=== PATIENT | male | born 1935 | race Caucasian/White ===

== ENCOUNTER 2020-08-07 19:23 | Inpatient (IN) | payer MEDICARE, OTHER ==
[~2020-08-07] VITALS: Ht 182.9 cm; Wt 98.4 kg
[2020-08-07] MEDS ORDERED: TAMS-3 PO (20:01)
[2020-08-07] MEDS ORDERED: LEVE1000 PO (20:01)
--- NOTE | 2020-08-07 20:17 | NUR ---
[facility]
--- NOTE | 2020-08-07 20:36 | NUR ---
Provided patient with meal.
--- NOTE | 2020-08-07 20:45 | NUR ---
Leatha Rosales NP spoke with ADRIANA Madrigal and stated that patient does not meet criteria to be admitted on medical floor. Patient can go to MHU and will be treated there.
--- NOTE | 2020-08-07 20:51 | NUR ---
Report given to MENG Mcmillan for psychiatric admission. Patient will be going to [facility].
[2020-08-07] MEDS ORDERED: BLOOD SUGAR DIAGNOSTIC 1 EACH STRIP VI ONE (21:15)
--- NOTE | 2020-08-07 22:01 | NUR ---
Patient transported to MHU in stable condition.
[2020-08-07] MEDS ORDERED: ZOLPIDEM 5 MG TABLET PO PRN (22:15)
[2020-08-07] MEDS ORDERED: LORAZEPAM 1 MG TABLET PO PRN (22:30)
[2020-08-07] MEDS ORDERED: MAGNESIUM HYDROXIDE 30 ML LIQUID UDC PO PRN (23:00)
[2020-08-07] MEDS ORDERED: MAG HYDROX/AL HYDROX/SIMETH 30 ML LIQUID UDC PO PRN (23:00)
[2020-08-07] MEDS ORDERED: ACETAMINOPHEN 325 MG TABLET PO PRN (23:00)
--- NOTE | 2020-08-07 23:15 | NUR ---
GPS: Admitted to unit earlier an 85 yr.old male under the care and supervision of / SHIRLEY Rosales. Pt.is on a 72 hour hold for GD. Pt.is alert to self,knows he's in the hosp. Reality re-orientation provided. Pt.calm when he came into the unit but started getting hostile,agitated,combative and threatening staff when his belongings were being checked despite staff's explanation . Uncooperative,refused to sign papers/refused further interview. Refused thorough skin /body assessemnt done on him despite explanation of importance. Pt's rights handbook/advisement given. Unit rules explained.Refused to be oriented to surroundings. Fall precautions observed. VSS.Denies pain/SOB. /SHIRLEY Rosales aware of pt's arrival to the unit. Requested sleeping pill for insomnia. Will monitor.
[2020-08-08 00:53] VITALS: BP 120/49
--- NOTE | 2020-08-08 07:01 | NUR ---
GPS: Pt.refused scheduled blood work this am. Risks vs benefits explained x3 but still unsuccessful.
--- NOTE | 2020-08-08 09:36 | NUR ---
Firearms Report: Resist Coater Developer completed and submitted a [employer] firearms report for 5150 grave disability certification. A copy of report has been placed in patient chart.
--- NOTE | 2020-08-08 11:12 | NUR ---
SW Family Contact: This SW contacted patient's person to notify Shaunna Aguilar ([phone]) to gather collateral and to discuss treatment/discharge plan. However, Shaunna was unavailable and this SW was unable to leave a voicemail.
--- NOTE | 2020-08-08 11:12 | NUR ---
Initial Discharge Plan: Patient is currently homeless and did not want to share any information. Patient will require a placement. This SW contacted patient's person to notify Shaunna Aguilar ([phone]) to gather collateral and to discuss treatment/discharge plan. However, Shaunna was unavailable and this SW was unable to leave a voicemail. This SW will work with the patient, treatment team, and MD to help coordinate proper discharge plan.
--- NOTE | 2020-08-08 11:14 | NUR ---
Individual Therapy: acid conditioning worker met with patient for brief counseling and assessed for patient's presenting problem disorganized thought content. Patient appeared guarded. Patient presented as confused, disorganized, and disoriented. Patient was uncooperative with this SW and was yelling while this SW attempted to conduct therapy. Patient was stating "I don't know how I got here, I need to leave". This SW comforted patient and stated why he was brought to the hospital. Patient calmed down afterwards. SW actively listened and provided comfort.
[2020-08-08] MEDS: levETIRAcetam 500 MG TABLET PO SCH ×2 (15:18→20:10)
--- NOTE | 2020-08-08 15:39 | NUR ---
Gps/children's choir director- Had been compliant with his routine medications, , attends and participates in his group therapy. had been cooperative with staff.
[2020-08-08 16:53] VITALS: BP 108/67
[2020-08-08] MEDS: QUETIAPINE FUMARATE 25 MG TABLET PO SCH (20:11)
--- NOTE | 2020-08-09 06:45 | NUR ---
PT SLEPT 8 H. PT IN NO ACUTE DISTRESS. PRESCRIBED MEDICATION GIVEN AND PT TOLERATED IT WELL. PT EASILY AGIATED. SAFETY AND COMFORT PROVIDED. ALL NEEDS ARE MET. WILL ENSORSE TO INCOMING NURSE FOR CONTINUITY OF CARE.
[2020-08-09] MEDS: TAMSULOSIN HCL 0.4 MG CAP.SR.24H PO SCH (08:35)
[2020-08-09] MEDS: levETIRAcetam 500 MG TABLET PO SCH ×2 (08:35→20:20)
--- NOTE | 2020-08-09 12:32 | NUR ---
WOUND CARE CONSULT: PT SEEN FOR BILATERAL HEELS WITH DRY WOUNDS, PRESENT ON ADMISSION. SOME TOENAILS NOTED TO BE LONG AND SHARP. RECOMMEND DPM CONSULT. DR ALEGRE NOTIFIED OF CONSULT REQUEST. IN AGREEMENT WITH PLAN OF CARE. Addendum: 08/09/20 at 1233 by ANA MALDONADO RN Amended: Links added.
--- NOTE | 2020-08-09 12:52 | NUR ---
SW Contact: This SW contacted patient's person to notify Shaunna Aguilar ([phone]) who stated that she has no relation with the patient and would want to be removed from patient's records. She expressed that she has been receiving constant phone calls from [facility] and has no relation with the pt. This SW will contact medical records.
--- NOTE | 2020-08-09 14:15 | NUR ---
Admitting: This SW contacted Marci from admitting to remove Shaunna joseph ([phone]) from patient's person to notify.
--- NOTE | 2020-08-09 14:39 | NUR ---
Individual Therapy: putty worker met with patient for brief counseling and assessed for patient's presenting problem disorganized thought content. Patient appeared guarded and angry. Patient did not want to speak to this SW. He stated "get out of here you bitch". Patient was verbally abusive and inappropriate. This SW unable to conduct therapy at this time.
--- NOTE | 2020-08-09 18:00 | NUR ---
Gps/angle shear operator- kept coming to the Nurses station, demanding to check all his belongings in a blue bag, informed they are in safe place, and will be given back to him when he's dc'd. patient irritable, arguementative, calling staff named stated" i was in the [employer] " . unable to redressed his soles of feet , pt. unacooperative, agry mood, offered prn ativan , refused,stated" you just want to dope me up" Patient very NIKOLSKI
--- NOTE | 2020-08-09 18:01 | NUR ---
patient been intrusive, paranoid , argumentative,patient cursing, using profanity to the telegraphic typewriter operator chief, patient increasingly agitated
[2020-08-09] MEDS: QUETIAPINE FUMARATE 25 MG TABLET PO SCH (20:20)
--- NOTE | 2020-08-09 22:09 | NUR ---
Received pt watching tv in the activity room. No acute distress noted. Denies discomfort. Denies SI. Due meds given as ordered. Safety measures maintained. Will continue to monitor.
[2020-08-10] MEDS: TAMSULOSIN HCL 0.4 MG CAP.SR.24H PO SCH (08:45)
[2020-08-10] MEDS: levETIRAcetam 500 MG TABLET PO SCH ×2 (08:46→20:43)
[2020-08-10] MEDS: ENSURE ENLIVE (VAN) 240 ML LIQUID PO SCH (16:55)
[2020-08-10] MEDS: QUETIAPINE FUMARATE 25 MG TABLET PO SCH (20:43)
--- NOTE | 2020-08-11 04:16 | NUR ---
Patient refused to take his psychiatric medication this PM and threw it on the floor stating " I do not need this damn medication and I should not even be here in the first place !". This patient continued to speak in a angry and elevated tone. After a few minutes, patient was calm and grateful to show card writer. Patient is labile and non compliant at this time. Continue to educate and encourage compliance. Monitoring the patient for safety and behavior escalation as well as periods of confusion. Will reorient patient as needed.
--- NOTE | 2020-08-11 06:31 | NUR ---
Patient slept 8.30 hours last night. No behavioral issues noted. Continuing to monitor for safety. Patient remains labile.
[2020-08-11] MEDS: levETIRAcetam 500 MG TABLET PO SCH ×2 (08:43→20:42)
[2020-08-11] MEDS: TAMSULOSIN HCL 0.4 MG CAP.SR.24H PO SCH (08:43)
[2020-08-11] MEDS: PROTEIN SUPPLEMENT (PROSTAT) 30 ML LIQUID PO SCH (08:44)
[2020-08-11] MEDS: ENSURE ENLIVE (VAN) 240 ML LIQUID PO SCH ×2 (08:44→17:21)
[2020-08-11] MEDS: QUETIAPINE FUMARATE 25 MG TABLET PO SCH (20:48)
--- NOTE | 2020-08-12 04:19 | NUR ---
Patient refused the PM dose of psychiatric medications , as well as routine VS and has not showered since admission. Patients mood is labile. Continuing to monitor for safety and any behavior escalation. No distress at this time.
[2020-08-12] MEDS: ENSURE ENLIVE (VAN) 240 ML LIQUID PO SCH ×2 (08:57→16:56)
[2020-08-12] MEDS: levETIRAcetam 500 MG TABLET PO SCH ×2 (08:57→20:52)
[2020-08-12] MEDS: TAMSULOSIN HCL 0.4 MG CAP.SR.24H PO SCH (08:57)
[2020-08-12] MEDS: PROTEIN SUPPLEMENT (PROSTAT) 30 ML LIQUID PO SCH (08:58)
--- NOTE | 2020-08-12 12:12 | NUR ---
[facility]: This SW contacted [facility] ([phone]) per patient's request. He stated that he lives here, however, this just social ict security specialist phone number.
--- NOTE | 2020-08-12 12:16 | NUR ---
Court Hearing: Patient's court hearing is today and it was upheld for GD.
--- NOTE | 2020-08-12 12:17 | NUR ---
SNF Referral: This SW sent CJ admin from [facility] ([phone]) for placement. This SW faxed patient's H & P progress notes, medication list, and laboratory list.
--- NOTE | 2020-08-12 12:50 | NUR ---
SNF Referral: This SW received a contact from CJ admin from [facility] ([phone]) who stated that pt is accepted.
--- NOTE | 2020-08-12 14:50 | NUR ---
Individual Therapy: project crew worker met with patient for brief counseling and assessed for patient's presenting problem disorganized thought content. Patient appeared guarded. Patient appeared angry and is fixated on discharge. Patient appeared disorganized and disoriented, he is unable to give out any information relating to his living condition or family information. Patient is fixated on his social security check. This SW was unable to provided therapy at this time as patient was unable to concentrate.
[2020-08-12] MEDS: QUETIAPINE FUMARATE 25 MG TABLET PO SCH (20:55)
--- NOTE | 2020-08-13 03:00 | NUR ---
RECEIVED PATIENT IN BED. NOTED QUIET, ISOLATIVE AND WITHDRAWN. DISPLAYED ONE EPISODE OF ANGER WHEN HE ASKED THAT I BRING HIM A STRONGER PAIN MEDICATION OTHER THAN TYLENOL. HE ALSO REFUSED HIS PSYCHIATRIC MEDICATION. HE HOWEVER TOOK THE KEPPRA.SAFETY MEASURES IN PLACE. WILL CONTINUE TO MONITOR.
[2020-08-13] MEDS: levETIRAcetam 500 MG TABLET PO SCH ×2 (08:25→20:36)
[2020-08-13] MEDS: PROTEIN SUPPLEMENT (PROSTAT) 30 ML LIQUID PO SCH (08:25)
[2020-08-13] MEDS: ENSURE ENLIVE (VAN) 240 ML LIQUID PO SCH ×2 (08:25→16:25)
[2020-08-13] MEDS: risperiDONE 0.25 MG TABLET PO SCH ×2 (11:00→16:26)
--- NOTE | 2020-08-13 12:42 | NUR ---
LUCIANO Note: Per patient's request he wanted this LUCIANO contacted [facility] ([phone]) and spoke with admin Jazmyn who stated that patient left [facility] August 06 and cannot return. Jazmyn reported that patient was verbally and physically abusive towards staff. Jazmyn reported that patient does not have any family members.
--- NOTE | 2020-08-13 14:32 | NUR ---
SW Note: This SW discussed discharge plan with patient and stated that patient is accepted at [facility]. This SW expressed that [facility] cannot accept him because he choose to leave. Patient agrees to going to [facility].
[2020-08-13 15:30] VITALS: BP 111/48
--- NOTE | 2020-08-13 15:40 | NUR ---
GPS: Nursing Notes: Non-compliance of Medication: Patient is awake and responding to his name, forgetful at times, gets easily irritable when redirected, loud and pressured speech, resistant with nursing care, continue to refuse to shower, refusing his psych medication, stated "HELL NO.. I AM NOT CRAZY..", demanding to leave at times, "THAT ASSHOLE MAKE A MISTAKE.. I AM NOT SUPPOSE TO BE HERE.. HE LIE ABOUT ME..", "I NEED TO FIND MY CAR..I WANT TO LEAVE..", unable to formulate a viable plan for self care, continue with treatment plan.
[2020-08-13] MEDS: TAMSULOSIN HCL 0.4 MG CAP.SR.24H PO SCH (20:36)
[2020-08-14] MEDS: PROTEIN SUPPLEMENT (PROSTAT) 30 ML LIQUID PO SCH (09:00)
[2020-08-14] MEDS: levETIRAcetam 500 MG TABLET PO SCH ×2 (10:25→20:06)
[2020-08-14] MEDS: risperiDONE 0.25 MG TABLET PO SCH ×2 (10:25→18:06)
[2020-08-14] MEDS: ENSURE ENLIVE (VAN) 240 ML LIQUID PO SCH ×2 (10:37→18:13)
--- NOTE | 2020-08-14 14:32 | NUR ---
Individual Therapy: salvage mend worker met with patient for brief counseling and assessed for patient's presenting problem disorganized thought content. Patient was asleep and did not want to conduct therapy at this time.
[2020-08-14] MEDS: TAMSULOSIN HCL 0.4 MG CAP.SR.24H PO SCH (20:06)
[2020-08-14 20:20] VITALS: BP 116/50
--- NOTE | 2020-08-15 06:45 | NUR ---
GPS: Pt.slept for 8.30 last night. Denies pain at this time. Seizure precautions observed. Needs attended. Will continue to re-direct prn.
[2020-08-15] MEDS: levETIRAcetam 500 MG TABLET PO SCH ×2 (08:59→20:15)
[2020-08-15] MEDS: risperiDONE 0.25 MG TABLET PO SCH ×2 (09:00→17:06)
[2020-08-15] MEDS: ENSURE ENLIVE (VAN) 240 ML LIQUID PO SCH ×2 (09:03→17:06)
[2020-08-15] MEDS: PROTEIN SUPPLEMENT (PROSTAT) 30 ML LIQUID PO SCH (09:03)
--- NOTE | 2020-08-15 15:01 | NUR ---
Individual Therapy: second time worker met with patient for brief counseling and assessed for patient's presenting problem disorganized thought content. Patient presented with euthymic mood. Patient appeared to be calm and cooperative with this SW. Patient appeared organized and had goals for himself. He stated "I will be taking care of myself at [facility]". This SW actively listened and provided support. This SW helped patient identify his goals.
[2020-08-15 16:00] VITALS: BP 116/46
--- NOTE | 2020-08-15 17:43 | NUR ---
Gps/Tent Worker- Stayed in the dinning room during his dinner, interacting with his peers. Denies any discomfort, continue to verbalized needs, and feelings, interactive .
[2020-08-15] MEDS: TAMSULOSIN HCL 0.4 MG CAP.SR.24H PO SCH (20:15)
[2020-08-16] MEDS: risperiDONE 0.25 MG TABLET PO SCH ×2 (08:31→16:58)
[2020-08-16] MEDS: PROTEIN SUPPLEMENT (PROSTAT) 30 ML LIQUID PO SCH (08:31)
[2020-08-16] MEDS: levETIRAcetam 500 MG TABLET PO SCH ×2 (08:31→20:06)
[2020-08-16] MEDS: ENSURE ENLIVE (VAN) 240 ML LIQUID PO SCH ×2 (08:34→16:58)
--- NOTE | 2020-08-16 09:14 | NUR ---
Discharge Note (Early Entry for Wednesday08/17/2020): Patient will be discharged to nursing home facility to [facility] ([address] [place] [address]; ) via ambulance transportation at 1PM. Lobbyist spoke with BERNICE, Infantry Weapons Crewmember at [facility]; ([phone]), who stated patient will be accepted at facility today. Patient does not have any family members. Patient is alert and oriented x2, and is not able to plan for self-care at this time, but is willing to accept care provided for her at the facility. Patient denies any suicidal or homicidal ideation. Patient denies visual/auditory hallucinations. Patient is aware and agreeable with discharge plans. Patient will continue to follow-up with her (Psychiatrist) Dr. Peterson and (Shutdown Planner) Dr. Pritchett at [facility] [address] [place] [address]; ). Patient signed the homeless waiver upon discharge and a copy was placed in the chart. Homeless resources were provided and include [address] information line for shelters and homeless resources. A copy of all resources given to patient was also placed in the chart. Patient presented with euthymic mood and congruent affect. Addendum: 08/16/20 at 1208 by LUCIANO NOVOA Discharge Note (Early Entry for Wednesday08/17/2020): Patient will be discharged to nursing home facility to [facility] ([address] [place] [address]; ) via ambulance transportation at 1PM. Lobbyist spoke with BERNICE, Infantry Weapons Crewmember at [facility]; ([phone]), who stated patient will be accepted at facility today. Patient does not have any family members. Patient is alert and oriented x2, and is not able to plan for self-care at this time, but is willing to accept care provided for his at the facility. Patient denies any suicidal or homicidal ideation. Patient denies visual/auditory hallucinations. Patient is aware and agreeable with discharge plans. Patient will continue to follow-up with his (Psychiatrist) Dr. Peterson and (Shutdown Planner) Dr. Pritchett at [facility] [address] [place] [address]; ). Patient signed the homeless waiver upon discharge and a copy was placed in the chart. Homeless resources were provided and include [address] information line for shelters and homeless resources. A copy of all resources given to patient was also placed in the chart. Patient presented with euthymic mood and congruent affect.
[2020-08-16] MEDS: TAMSULOSIN HCL 0.4 MG CAP.SR.24H PO SCH (20:06)
--- NOTE | 2020-08-17 06:30 | NUR ---
GPS: Pt.slept 8 last night. In no form of distress noted. Fall precautions observed. Will continue to monitor.
[2020-08-17] MEDS: levETIRAcetam 500 MG TABLET PO SCH (08:04)
[2020-08-17] MEDS: risperiDONE 0.25 MG TABLET PO SCH (08:04)
[2020-08-17] MEDS: PROTEIN SUPPLEMENT (PROSTAT) 30 ML LIQUID PO SCH (08:14)
[2020-08-17] MEDS: ENSURE ENLIVE (VAN) 240 ML LIQUID PO SCH (08:15)
--- NOTE | 2020-08-17 12:32 | NUR ---
Gps/Uplands Division Director- Called [facility], report was given to Nurse Counter Intelligence Technician Yumi . Informed patient had $ 1,123.00 daler money , will send copy of receipt . Patient was well informed of his discharge plan . All belongings/valuables will be given back to patient upon discharge . Patient in good spirit with no complaints noted.Informed facility patient tends to refused to have v/s taken.
--- NOTE | 2020-08-17 13:35 | NUR ---
Gps/Coater Associate- Patient signed discharge instructions $ 1, 123.00 and few coins retuned back to patient, he wants to keep it with him. patient had copies of the receipts. Has Purple pouch that he wants to keep with himp has 2 caanes . . Ambulance to transport pt.
[2020-08-17 14:00] VITALS: BP 116/47
--- NOTE | 2020-08-17 14:15 | NUR ---
Gps/In Flight Technician- Discharged via ambulance to [facility], no complaints noted, aall valuables given back to patient. , discharged in good spirit.
== END 2020-08-17 14:15 | DRG 876 ==
LOC: ER 19:27 → GPS 20:55
PROVIDERS: ADMIT Psychiatry & Neurology Psychiatry; ATTEND Nurse Practitioner Acute Care
PROC: 0JBQ0ZZ Excision of Right Foot Subcutaneous Tissue and Fascia, Open Approach (ICD-10-PCS; principal; 2020-08-09)
PROC: 0HBRXZZ Excision of Toe Nail, External Approach (ICD-10-PCS; 2020-08-09)
DX: F39 Unspecified mood [affective] disorder (principal); L89.613 Pressure ulcer of right heel, stage 3; F23 Brief psychotic disorder; F03.91 Unspecified dementia, unspecified severity, with behavioral disturbance; G40.909 Epilepsy, unspecified, not intractable, without status epilepticus; Z59.0 Homelessness; G89.29 Other chronic pain; N40.0 Benign prostatic hyperplasia without lower urinary tract symptoms; Z87.891 Personal history of nicotine dependence; Z95.0 Presence of cardiac pacemaker; F29 Unspecified psychosis not due to a substance or known physiological condition; L60.3 Nail dystrophy; M79.672 Pain in left foot; M79.671 Pain in right foot; Z73.6 Limitation of activities due to disability; Z20.822 Contact with and (suspected) exposure to COVID-19
CPT/HCPCS: 71046; A4663